=== PATIENT | female | born 1995 | race Caucasian/White ===

== ENCOUNTER 2024-07-03 08:22 | Emergency (ER) | payer BC, SELFPAY ==
[2024-07-03 08:34] VITALS: BP 170/93; PULSE 100; RESP 18; TEMP 36.8; O2SAT 97; BMI 44.8
--- NOTE | 2024-07-03 08:37 | ED_ITS ---
HPI - General Adult 2 General: Chief complaint: Nausea/Vomiting/Diarrhea Stated complaint: nauia / headaches Time Seen by Provider: 07/03/24 08:27 History of Present Illness: 28-year-old female [facility] with complaint of occipital migraine. She states she gets these often with weather changes for having some weather change now. Does not even usually once a month. In the past she did use sumatriptan orally occasion they would most often be effective but sometimes states the headaches get severe enough that it did not work. She has had autophobia photophobia and nausea with this headache. This been going on for the last couple of days she has not really taken anything for it at home. I had asked her if she had any cough or cold symptoms that she had told me now she did tell the nurse and her note recorded that she had increased cough and congestion recently she denies any fever or head trauma she does not believe that she is . Associated symptoms: Reports headache(s); Deny chest pain, dyspnea or rash Related Data Previous Rx's Medication Instructions Recorded cefdinir 300 mg capsule 300 mg PO BID 7 days #14 caps 07/03/24 promethazine 25 mg tablet 25 mg PO Q6H PRN nausea and 07/03/24 vomiting #20 tabs Allergies Allergy/AdvReac Type Severity Reaction Status Date / Time No Known Allergies Allergy Verified 07/03/24 08:33 Review of Systems 2 Const: Denies: fever(s) or chills Card: Denies: chest pain Resp: Denies: dyspnea GI: Denies: abdominal pain : Denies: dysuria, urinary frequency or urinary urgency Musc: Denies: neck pain or back pain Skin/Breast: Denies: rash Neuro: Reports: headache(s) Physical Exam 2 Const: COMMON NORMALS: no acute distress GENERAL APPEARANCE: cooperative ORIENTATION/CONSCIOUSNESS: Yes awake, Yes oriented to person, Yes oriented to place and Yes oriented to time HENMT: COMMON NORMALS: normocephalic, atraumatic and hearing grossly normal bilaterally HEAD & SCALP: normocephalic and atraumatic Resp: COMMON NORMALS: normal respiratory effort, No retractions, No use of accessory muscles and clear to auscultation bilaterally AUSCULTATION: clear to auscultation bilaterally Cardio: COMMON NORMALS: regular rate, regular rhythm and No murmurs present (Cardio) RATE: regular rate RHYTHM: regular rhythm GI: COMMON NORMALS: Soft to palpation and No hepatosplenomegaly present A USCULTATION: Yes normoactive bowel sounds PALPATION: Yes Soft to palpation, No Tenderness to palpation present (GI), No Guarding due to palpation present (GI) and Yes No hepatosplenomegaly present Extremity: COMMON NORMALS: normal to inspection, capillary refill normal, no clubbing, cyanosis or edema, no calf tenderness and no pedal edema Neuro: SENSORIUM/ORIENTATION: Yes oriented to person, Yes oriented to place and Yes oriented to time Skin: COMMON NORMALS: no rashes or lesions noted GENERAL SKIN EXAM: no rashes or lesions noted Course 2 Vital Signs: Vital signs: Vital Signs Temperature 98.3 F 07/03/24 08:34 Pulse Rate 98 07/03/24 11:33 Respiratory Rate 18 07/03/24 08:39 Blood Pressure 177/85 07/03/24 11:33 Pulse Oximetry 97 07/03/24 11:33 MDM - General Adult Medical Decision Making Patient initially presents complaints of nausea vomiting and a headache. Initial lab work 200 qualitative beta-hCG came back positive. We had started valproic acid for headache this was stopped immediately. She received only a small portion of the dose. Serum quantitative beta-hCG was 11,000. When I went to discuss the lab findings with the patient there was a family member presently has a family member to step out. Informed patient to that she was we will be getting an ultrasound she asked that we not share this information with the family member that was with her. Advised the nursing staff and the chief technologist of her wishes. Ultrasound shows approximately 20 weeks 1 day gestation amniotic fluid and cardiac activity was normal. Reviewed this with the patient the ultrasound gives her an EDC of 11/19/2024 however discussed with the patient that in the case of late presenting ultrasounds of the dating is rather loose. She is uncertain of her LMP as her periods of always been very irregular. I reviewed the findings with the patient we did not however put her on the discharge paperwork that was given her because of her desire not to have the family member aware of the diagnosis. It was added after she was given her discharge paperwork and left the department. She was given a handwritten prescription for vitamins along with promethazine to use as needed encouraged her to follow-up with her primary care doctor to establish with an OB as soon as she possibly can. Incidental finding of a cystitis for which we will call in oral antibiotics. Lab Data 07/03/24 08:46 07/03/24 08:46 Radiology Impressions Obstetrics Ultrasound 07/03/24 10:09 IMPRESSION: 1. Single intrauterine gestation of 20w1d with an AYAAN of 11/19/2024. 2. Normal amniotic fluid. Normal cardiac activity. Laboratory Results WBC 10.45 10^3/uL (3.29-11.43) 07/03/24 08:46 RBC 4.64 10^6/uL (3.85-5.65) 07/03/24 08:46 Hgb 12.00 g/dL (11.27-16.99) 07/03/24 08:46 Hct 37.6 % (36-47) 07/03/24 08:46 MCV 81.0 fl (85-98) L 07/03/24 08:46 MCH 25.9 pg (27-33) L 07/03/24 08:46 MCHC 31.9 g/dL (30-55) 07/03/24 08:46 RDW 13.8 % (12.1-15.1) 07/03/24 08:46 Plt Count 478 10^3/cmm (157-399) H 07/03/24 08:46 MPV 9.3 fL (7.4-10.4) 07/03/24 08:46 Neut % (Auto) 69.2 % 07/03/24 08:46 Lymph % (Auto) 23.6 % 07/03/24 08:46 [place] % (Auto) 4.8 % 07/03/24 08:46 Eos % (Auto) 1.7 % 07/03/24 08:46 Baso % (Auto) 0.4 % 07/03/24 08:46 Neut # (Auto) 7.23 10^3/uL (1.8-7.7) 07/03/24 08:46 Lymph # (Auto) 2.5 10^3/uL (0.8-4.8) 07/03/24 08:46 [place] # (Auto) 0.5 10^3/uL (0.2-0.9) 07/03/24 08:46 Eos # (Auto) 0.2 10^3/uL (0.0-0.8) 07/03/24 08:46 Baso # (Auto) 0.0 10^3/uL (0.0-0.1) 07/03/24 08:46 Nucleated RBC % (auto) 0 % 07/03/24 08:46 Nucleated RBCs # 0.0 /100WBC 07/03/24 08:46 Sodium 138 mmol/L (136-145) 07/03/24 08:46 Potassium 3.8 mmol/L (3.5-5.1) 07/03/24 08:46 Chloride 101 mmol/L (98-107) 07/03/24 08:46 Carbon Dioxide 21 mmol/L (22-29) L 07/03/24 08:46 Anion Gap 19.8 (5-19) H 07/03/24 08:46 BUN 9 mg/dL (6-20) 07/03/24 08:46 Creatinine 0.5 mg/dL (0.5-0.9) 07/03/24 08:46 GFR Calculation 149.1 mL/min (90-130) H 07/03/24 08:46 Glucose 79 mg/dL (65-115) 07/03/24 08:46 Calculated Osmolality 284 mOsm/kg (285-295) L 07/03/24 08:46 Calcium 9.4 mg/dL (8.5-10.5) 07/03/24 08:46 Total Bilirubin 0.2 mg/dL (0.15-1.2) 07/03/24 08:46 AST 39 U/L (0-32) H 07/03/24 08:46 ALT 19 U/L (0-33) 07/03/24 08:46 Alkaline Phosphatase 95 U/L (35-105) 07/03/24 08:46 Total Protein 7.3 g/dL (6.6-8.7) 07/03/24 08:46 Albumin 3.9 g/dL (3.5-5.2) 07/03/24 08:46 Globulin 3.4 g/dL (1.3-4.6) 07/03/24 08:46 HCG, Qual Positive (Negative) H 07/03/24 08:46 Ser , Semi-Qnt 70859.00 mIU/mL 07/03/24 08:46 Urine Color [place] (Yellow) A 07/03/24 08:54 Urine Appearance Turbid (CLEAR) A 07/03/24 08:54 Urine pH 5.0 (5-7) 07/03/24 08:54 Ur Specific [place] 1.031 (1.005-1.030) H 07/03/24 08:54 Urine Protein 1+ (Negative) A 07/03/24 08:54 Urine Glucose (UA) Negative (Normal) 07/03/24 08:54 Urine Ketones Trace (Negative) 07/03/24 08:54 Urine Blood Negative (Negative) 07/03/24 08:54 Urine Nitrate Positive (Negative) A 07/03/24 08:54 Urine Bilirubin 1+ (Negative) H 07/03/24 08:54 Urine Urobilinogen 1.0 mg/dL (Negative) 07/03/24 08:54 Ur Leukocyte Esterase 1+ (Negative) A 07/03/24 08:54 Urine RBC 11-20 /hpf (0-2) H 07/03/24 08:54 Urine WBC 21-50 /hpf (0-5) H 07/03/24 08:54 Ur Squamous Epith Cells 21-50 /hpf (0-5) 07/03/24 08:54 Amorphous Sediment 1+ /hpf 07/03/24 08:54 Urine Bacteria 4+ /hpf (NONE) H 07/03/24 08:54 Hyaline Casts 5.36 /lpf 07/03/24 08:54 Urine Mucus 1+ /hpf 07/03/24 08:54 All radiology interpretation(s) finalized by discharge Discharge Plan Discharge Patient Disposition: Home Clinical Impression: Headache, Nausea & vomiting, Cystitis, 20 weeks gestation of Condition: Stable Prescriptions: New promethazine 25 mg tablet 25 mg PO Q6H PRN (Reason: nausea and vomiting) Qty: 20 0RF cefdinir 300 mg capsule 300 mg PO BID 7 Days Qty: 14 0RF Discharge Orders: Discharge ED (Routine); Ordered 07/03/24 Ordered By: Perry Schwartz Discharge Diet: Usual diet Discharge Activity: Resume usual activity Patient Instructions: Opioid Safety, Pain Management Activity Restrictions/Additional Instructions: Thank you for choosing [facility] for your healthcare needs today. It is very important that you follow up as instructed or that you return to the Emergency Department should you have concerns or if your condition changes or worsens in any way. You were seen in the emergency room with complaint of nausea and headaches. Your symptoms responded well to the medications given. You are given promethazine to use as needed for nausea vomiting and headaches. You can also use Tylenol. Very important that you follow-up with your primary care doctor as soon as you are able. 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
[2024-07-03 08:39] VITALS: BP 170/93; PULSE 100; RESP 18; O2SAT 97
[2024-07-03] MEDS: prochlorperazine 10 mg/2 mL Inj IVP (08:50)
[2024-07-03 08:51] LABS: Basophils % 0.4 %; Eosinophils # 0.2 10^3/uL (0.0-0.8); Eosinophils % 1.7 %; Hematocrit 37.6 % (36-47); Lymphocytes # 2.5 10^3/uL (0.8-4.8); Lymphocytes % 23.6 %; Mean Corpuscular HGB Conc 31.9 g/dL (30-55); Mean Corpuscular Hemoglobin 25.9 pg (27-33); Mean Platelet Volume 9.3 fL (7.4-10.4); Monocytes # 0.5 10^3/uL (0.2-0.9); Monocytes % 4.8 %; Neutrophils # 7.23 10^3/uL (1.8-7.7); Neutrophils % 69.2 %; Nucleated Red Blood Cells % 0 %; Platelet Count 478 10^3/cmm (157-399); Red Blood Count 4.64 10^6/uL (3.85-5.65); Red Cell Distribution Width 13.8 % (12.1-15.1); White Blood Count 10.45 10^3/uL (3.29-11.43)
[2024-07-03 08:59] LABS: HCG, Serum Qual Positive (Negative)
[2024-07-03] MEDS: valproic acid inj 500 MG in sodium chloride 0.9% 50 ML 55 MG IV (09:08)
[2024-07-03 09:12] LABS: Alanine Aminotransferase 19 U/L (0-33); Albumin Level 3.9 g/dL (3.5-5.2); Alkaline Phosphatase 95 U/L (35-105); Anion Gap 19.8 (5-19); Aspartate Amino Transferase 39 U/L (0-32); Blood Urea Nitrogen 9 mg/dL (6-20); Calcium 9.4 mg/dL (8.5-10.5); Carbon Dioxide 21 mmol/L (22-29); Chloride 101 mmol/L (98-107); Creatinine Clr Calc Pharmacy 239.1567; Globulin 3.4 g/dL (1.3-4.6); Glomerular Filtration Rate 149.1 mL/min (90-130); Glucose 79 mg/dL (65-115); Osmolality Calculated 284 mOsm/kg (285-295); Potassium 3.8 mmol/L (3.5-5.1); Sodium 138 mmol/L (136-145); Total Bilirubin 0.2 mg/dL (0.15-1.2); Total Protein 7.3 g/dL (6.6-8.7)
[2024-07-03 09:20] LABS: Bilirubin Urine 1+ (Negative); Blood Urine Negative (Negative); Glucose Urine UA Negative (Normal); Ketones Urine Trace (Negative); Leukocyte Esterase Urine 1+ (Negative); Nitrate Urine Positive (Negative); Protein Urine 1+ (Negative); Urine Appearance Turbid (CLEAR)
[2024-07-03 09:25] LABS: Add Urine Microscopic? YES; Bacteria Urine 4+ /hpf; Hyaline Casts Urine 5.36 /lpf; Squamous Epithelial Cell Urine 21-50 /hpf (0-5); WBC Urine 21-50 /hpf (0-5)
[2024-07-03 09:33] LABS: Mucus Urine 1+ /hpf; Specific Gravity, Urine 1.031 (1.005-1.030); UA Slide Review UA Slide Review Perf; Urine Color Orange (Yellow)
[2024-07-03 09:34] LABS: Amorphous Sediment Urine 1+ /hpf
--- NOTE | 2024-07-03 10:09 | US_ITS ---
WS: [id number] LIMITED OBSTETRICAL ULTRASOUND HISTORY: newly dx COMPARISON: None available. Presentation: Indeterminate, head is not just above the cervix. Cervix: Closed and normal length. Placenta: Posterior, no previa or abruption. Grade: 1 HEART: FHR of 148 BPM. measurements: BPD = 4.6 cm = 19w6d; HC = 17.5 cm = 20w0d; AC = 15.1 cm = 20w2d; FL = 3.3 cm = 20w3d; Normal amniotic fluid. EFW: 345.0 g AGA by ultrasound: 20w1d AYAAN by ultrasound: 11/19/2024 US/US OB limited [id number] IMPRESSION: 1. Single intrauterine gestation of 20w1d with an AYAAN of 11/19/2024. 2. Normal amniotic fluid. Normal cardiac activity.
[2024-07-03] MEDS: cefTRIAXone 1,000 mg SDV 1000 MG IVP (10:17)
[2024-07-03 10:20] VITALS: BP 151/94; PULSE 113; O2SAT 96
[2024-07-03 11:01] VITALS: BP 163/86; PULSE 98; O2SAT 97
[2024-07-03 11:33] VITALS: BP 177/85; PULSE 98; O2SAT 97
--- NOTE | 2024-07-03 11:36 | PC.NURSE ---
provider added dx, after pt had d/c printed bc she didnt want her father knowing she was . provider wrote a prescription for vitamins and it was paperclipped inside paperwork with work notes. pt was instructed by provider to follow up with PCP and establish care with OB.
== END 2024-07-03 11:33 | disposition home or self-care (01) ==
PROVIDERS: Emergency Provider Family Medicine
DX: R51.9 Headache, unspecified (principal); R11.2 Nausea with vomiting, unspecified; N30.90 Cystitis, unspecified without hematuria; Z3A.20 20 weeks gestation of pregnancy
CPT/HCPCS: 76815; 80053; 81001; 84702; 84703; 85025; 96374; 96375; 99285; J0696; J0780; J3490

== ENCOUNTER 2024-10-30 15:22 | Outpatient (CLI) | payer BC, SELFPAY ==
[2024-10-30 15:22] VITALS: BP 137/64; PULSE 114; O2SAT 98
[2024-10-30 15:52] VITALS: BP 129/62; PULSE 107
[2024-10-30 16:01] VITALS: BP 124/60; PULSE 113
[2024-10-30 16:18] VITALS: BP 137/64; PULSE 114
== END 2024-10-30 16:35 | disposition home or self-care (01) ==
LOC: OPOB 15:23 → OBGYN 15:46
PROVIDERS: PCP Family Medicine; Visit Provider Family Medicine
DX: O13.9 Gestational [pregnancy-induced] hypertension without significant proteinuria, unspecified trimester (principal); Z3A.00 Weeks of gestation of pregnancy not specified
CPT/HCPCS: 59025; 99211

== ENCOUNTER 2024-11-24 04:56 | Inpatient (IN) | payer BC, SELFPAY ==
--- NOTE | 2024-11-05 12:15 | ANES.PREANE2 ---
Pre-Anesthetic Assessment Height/Weight: Height 1.7 m Operation Date: 11/24/24 07:20 Proposed Procedures p Section 39788,(Not Applicable) - Michael Rutledge MD Familial anesthetic complications: None Social No alcohol and No tobacco Exam alert, oriented x 3, clear to auscultation bilaterally and regular rate & rhythm Airway Dentition: full Anesthetic Plan ASA status: 2 Anesthesia: Regional (specify below) Risk of > 500 ml blood loss (7ml/kg in children): Yes, adequate IV access and fluids planned Medications/Allergies Home Medications ?Medication ?Instructions ?Recorded ?Confirmed ?Last Taken ?Type promethazine 25 mg tablet 25 mg PO Q6H PRN nausea and 07/03/24 Unknown Rx vomiting #20 tabs Allergies Allergy/AdvReac Type Severity Reaction Status Date / Time No Known Allergies Allergy Verified 07/03/24 08:33
[2024-11-24] VITALS (44 sets, daily range): BP systolic 88–196; BP diastolic 51–108; PULSE 61–96; RESP 15–16; TEMP 36.3–36.6; O2SAT 98–100; BMI 45.8
--- OUTSIDE RECORDS SUMMARY | 2024-11-24 04:58 | XMS_ITS | Clinical Summary ---
Author Organization [facility] Address [address] [place] [address] Care Team Providers Care Visualizer Name Role Phone Mel Adenike Suggs Primary Care Provider [phone] Allergies No known active allergies Medications SUMAtriptan (IMITREX) 50 mg tabletIndicatio ns:Intractable migraine without aura and without status migrainosus Take 1 Tablet (50 mg) by mouth every 2 hours as needed for Migraine. may repeat in 2 hours; max dose 200mg in 24 hours 9 Tablet 6 04/21/20 20 Active buPROPion HCL (WELLBUTRIN SR) 150 mg Sustained Release 12 hour tabletIndicatio ns:Mood swings,Obesity (BMI 35.0-39.9 without comorbidity),Mo derate single current episode of major depressive disorder (CMS/HCC) Take 1 tablet by mouth twice daily 180 Tablet 1 06/13/20 20 Active triamcinolone acetonide (KENALOG) 0.5 % CreamIndication s:Atopic dermatitis, unspecified type Apply to affected area 2 times daily. 30 Gram 2 06/13/20 20 Active Ethinyl Estradiol-Norel gestrom 150-35 mcg/24 hr Patch Weekly PATCHIndication s:Contraceptive patch status Apply 1 Patch to skin as directed see administration instructions. 3 Patch 12 06/19/20 20 Active Active Problems Problem Noted Date Diagnosed Date Intractable migraine without aura and without status migrainosus 08/05/2017 Mixed hyperlipidemia 06/02/2017 Family History Medical History Relation Name Comments Heart Disease Maternal Grandfather Diabetes Maternal Grandmother Heart Disease Maternal Grandmother Thyroid Disease Mother No Known Problems Sister Relation Name Status Comments Maternal Grandfather Alive Maternal Grandmother Alive Mother Alive Sister Alive Social History Tobacco Use Types Packs/Day Years Used Date Smoking Tobacco: Never Smokeless Tobacco: Never Tobacco Cessation:Counseling Given: Yes Alcohol Use Standard Drinks/Week Comments No 0 (1 standard drink = 0.6 oz pur e alcohol) Comments No Sex and Gender Information Value Date Recorded Sex Assigned at Not on file Legal Sex Female 2:26 PM CDT Gender Identity Not on file Sexual Orientation Not on file Last Filed Vital Signs Vital Sign Reading Time Taken Comments Blood Pressure 116/64 06/13/2020 4:01 PM ASSISTANT MANAGER PT Pulse 91 06/13/2020 4:01 PM ASSISTANT MANAGER PT Temperature 36.9 C (98.5 F) 06/13/2020 4:01 PM ASSISTANT MANAGER PT Respiratory Rate 18 09/09/2017 4:32 PM CDT Oxygen Saturation 98% 06/13/2020 4:01 PM ASSISTANT MANAGER PT Inhaled Oxygen Concentration - - Weight 102.5 kg (226 lb) 06/13/2020 4:01 PM ASSISTANT MANAGER PT Height 170.2 cm (5' 7 ) 06/13/2020 4:01 PM ASSISTANT MANAGER PT Body Mass Index 35.4 06/13/2020 4:01 PM ASSISTANT MANAGER PT Plan of Treatment Health Maintenance Due Date Last Done Comments HPV VACCINES (1 - 3-dose series) 2012 DTAP/TDAP/TD VACCINES (1 - Tdap) 2016 HEPATITIS B VACCINES (1 of 3 - 19+ 3-dose series) 2016 CERVICAL CANCER SCREENING 06/09/2022 PAP SMEAR 06/09/2022 06/09/2019, 06/09/2019 INFLUENZA VACCINE (#1) 2024 HPV/Cotest (21-29) 06/09/2024 06/09/2019 Preventative Visit- Commercial 06/24/2024 1 07/16/2021, 02/19/2022, 06/13/2020, Additional history exists HPV/Cotest (30-65) 12/27/2027 06/09/2019 Procedures Procedure Name Priority Date/Time Associated Diagnosis Comments CERV/VAG CYTO SCREEN PAP W/HPV Routine 06/09/2019 11:24 AM ASSISTANT MANAGER PT Well woman exam with routine gynecological exam from Last 3 Months or Most Recently Relevant to Health Maintenance Results * CERV/VAG CYTO SCREEN PAP W/HPV (06/09/2019 11:24 AM ASSISTANT MANAGER PT) PAP INTERP See Separate Results 06/15/2019 11:33 AM ASSISTANT MANAGER PT [facility] Genital SWAB OF ENDOCERVIX / Unknown Collection / Unknown 06/09/2019 11:24 AM ASSISTANT MANAGER PT 06/10/2019 7:00 AM ASSISTANT MANAGER PT us Vanessa Timmons HOME THERAPY CLINICIAN PATHOLOGY/CYTOLOGY ORDERABLES Final Result [facility] [employer] [facility] CLIA# [id number] [address] [place], [place] [id number] from Last 3 Months or Most Recently Relevant to Health Maintenance Insurance [employer]US Care Teams Visualizer Relationship Specialty Start Date End Date Adenike Leal DO [address] [place] [address] PCP - General Family Practice 12/07/19
--- OUTSIDE RECORDS SUMMARY | 2024-11-24 04:58 | XMS_ITS | Encounter Summary ---
Author Organization [facility] Address [address] [place] [address] Care Team Providers Care Metal Roofer Name Role Phone Adenike Leal Primary Care Provider [phone] Encounter Details Date Type Department Care Team (Late st Contact Info) Description 12/07/2019 Ancillary Orders [facility] Medicine [place] [address] [place] [address] Sheree Tavarez, [facility] [address] [facility] [address] [place] [phone] Fall, initial encounter; Acute midline thoracic back pain Social History Tobacco Use Types Packs/Day Years Used Date Smoking Tobacco: Never Smokeless Tobacco: Never Alcohol Use Standard Drinks/Week Comments No 0 (1 standard drink = 0.6 oz pur e alcohol) Comments No Sex and Gender Information Value Date Recorded Sex Assigned at Not on file Legal Sex Female 2:26 PM CDT Gender Identity Not on file Sexual Orientation Not on file COVID-19 Exposure Response Date Recorded In the last month, have you been in contact with someone who was confirmed or suspected to have Coronavirus / COVID-19? No / Unsure 12/07/2019 11:00 AM CDT documented as of this encounter Plan of Treatment Not on file documented as of this encounter Results * XR THORACIC SPINE 3 VW (12/07/2019 2:38 PM CDT) Anatomical Region Laterality Modality Spine Computed Radiogr aphy 12/07/2019 2:38 PM CDT Impressions 12/07/2019 9:38 PM CDT IMPRESSION: No acute osseous abnormality. Narrative 12/07/2019 9:38 PM CDT Exam: XR THORACIC SPINE 3 VW Date/Time of Exam: 12/07/2019 2:38 PM Reason For Exam: See Diagnosis. Diagnosis: Fall, initial encounter; Acute midline thoracic back pain. Comparison: None. Findings: The vertebral body alignment appears anatomic. There is no definitive evidence of an acute fracture or compression deformity. The soft tissues appear grossly unremarkable. Procedure Note José Meier, DO - 12/07/2019 Exam: XR THORACIC SPINE 3 VW Date/Time of Exam: 12/07/2019 2:38 PM Reason For Exam: See Diagnosis. Diagnosis: Fall, initial encounter; Acute midline thoracic back pain. Comparison: None. Findings: The vertebral body alignment appears anatomic. There is no definitive evidence of an acute fracture or compression deformity. The soft tissues appear grossly unremarkable. IMPRESSION: No acute osseous abnormality. Sheree Tavarez BOATBUILDER APPRENTICE WOOD DIAGNOSTIC IMAGING ORDER LUIGI Final Result documented in this encounter Visit Diagnoses Diagnosis Fall, initial encounter Acute midline thoracic back pain Fall, initial encounter Acute midline thoracic back pain documented in this encounter Care Teams Metal Roofer Relationship Specialty Start Date End Date Adenike Leal DO [address] [place] [address] PCP - General Family Practice 12/07/19 documented as of this encounter
--- OUTSIDE RECORDS SUMMARY | 2024-11-24 04:58 | XMS_ITS | Clinical Summary ---
Author Organization [facility] Address [address] [facility] Attn: Epic Prelude ADT EZEQUIEL NUNES [address] Care Team Providers Care Slate Picker Name Role Phone Adenike Leal Primary Care Provider [phone] Allergies No known active allergies Medications simvastatin (ZOCOR) 10 mg tabletIndications: Hyperlipidemia, unspecified hyperlipidemia type Take 1 Tablet (10 mg) by mouth daily at bedtime. 90 Tablet 3 05/16/20 22 Active triamcinolone acetonide (KENALOG) 0.5 % CreamIndications:A topic dermatitis, unspecified type Apply to affected area 2 times daily. 30 Gram 1 10/12/19 23 Active buPROPion HCL (WELLBUTRIN SR) 150 mg Sustained Release 12 hour tabletIndications: Mood swings,Obesity (BMI 35.0-39.9 without comorbidity),Moder ate single current episode of major depressive disorder (CMS/HCC) Take 1 Tablet (150 mg) by mouth 2 times daily. 60 Tablet 5 10/12/19 23 Active SUMAtriptan (Imitrex) 100 mg tabletIndications: Intractable migraine without aura and without status migrainosus Take 1 Tablet (100 mg) by mouth see administration instructions. may repeat in 2 hours; max dose 200mg in 24 hours 12 Tablet 3 10/12/19 23 Active Ethinyl Estradiol-Norelges trom (Zafemy) 150-35 mcg/24 hr Patch Weekly PATCHIndications:C ontraceptive patch status APPLY 1 PATCH TOPICALLY TO CLEAN DRY SKIN DIRECTED 3 Patch 11 04/17/20 24 Active Active Problems Problem Noted Date Diagnosed Date Intractable migraine without aura and without status migrainosus 08/05/2017 Mixed hyperlipidemia 06/02/2017 Encounters Date Type Department Care Team Description 09/22/2024 External Device Data [facility] ABSTRACTION Provider, Abstract 08/29/2024 External Device Data [facility] ABSTRACTION Provider, Abstract 08/28/2024 External Device Data [facility] ABSTRACTION Provider, Abstract 08/25/2024 External Device Data [facility] ABSTRACTION Provider, Abstract from Last 3 Months Family History Medical History Relation Name Comments Heart Disease Maternal Grandfather Diabetes Maternal Grandmother Heart Disease Maternal Grandmother Thyroid Disease Mother No Known Problems Sister Relation Name Status Comments Maternal Grandfather Alive Maternal Grandmother Alive Mother Alive Sister Alive Social History Tobacco Use Types Packs/Day Years Used Date Smoking Tobacco: Never Passive Smoke Exposure: Never Smokeless Tobacco: Never Tobacco Cessation:Counseling Given: No Alcohol Use Standard Drinks/Week Comments No 0 (1 standard drink = 0.6 oz pur e alcohol) Comments No Sex and Gender Information Value Date Recorded Sex Assigned at Not on file 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 Gender Identity Not on file Sexual Orientation Not on file Last Filed Vital Signs Vital Sign Reading Time Taken Comments Blood Pressure 126/62 04/17/2024 2:59 PM CDT Pulse 100 04/17/2024 2:59 PM CDT Temperature 37 C (98.6 F) 04/17/2024 2:59 PM CDT Respiratory Rate 18 04/17/2024 2:59 PM CDT Oxygen Saturation 97% 04/17/2024 2:59 PM CDT Inhaled Oxygen Concentration - - Weight 130.1 kg (286 lb 12.8 oz) 04/17/2024 2:59 PM CDT Height 170.2 cm (5' 7 ) 04/17/2024 2:59 PM CDT Body Mass Index 44.92 04/17/2024 2:59 PM CDT Plan of Treatment Health Maintenance Due Date Last Done Comments HPV VACCINES (1 - 3-dose series) 2012 DTAP/TDAP/TD VACCINES (1 - Tdap) 2016 HEPATITIS B VACCINES (1 of 3 - 19+ 3-dose series) 2016 HPV/Cotest (21-29) 06/09/2024 06/09/2019, 06/09/2019 Preventative Visit- Commercial 06/24/2024 1 07/16/2021, 02/19/2022, 06/13/2020, Additional history exists CERVICAL CANCER SCREENING 05/16/2025 PAP SMEAR 05/16/2025 05/16/2022, 05/24, 06/09/2019, Additional history exists HPV/Cotest (30-65) 12/27/2027 06/09/2019, 06/09/2019 INFLUENZA VACCINE Completed 04/17/2024 Procedures Procedure Name Priority Date/Time Associated Diagnosis Comments CERV/VAG CYTO AGE BASED SCREEN PAP Routine 05/16/2022 2:19 PM MARINE SPECIALIST Well woman exam with routine gynecological exam CERV/VAG CYTO SCREEN PAP W/HPV Routine 06/09/2019 11:24 AM MARINE SPECIALIST from Last 3 Months or Most Recently Relevant to Health Maintenance Results * CERV/VAG CYTO AGE BASED SCREEN PAP (05/16/2022 2:19 PM MARINE SPECIALIST) COMMENT (PAP): [facility] [place] Comment: This order for age-based cervical cancer and STI screening follows ACOG guidelines(PB 168, 140, FOG538). See individual assays for performing site location. CLINICAL INFORMATION [facility] [place] Comment:SCREENING LAST MENSTRUAL PERIOD [facility] [place] Comment:05/03/2022 PREV PAP: [facility] [place] Comment:06/09/2019 NEG PREV BX: [facility] [place] Comment:NONE GIVEN SOURCE [facility] [place] Comment:Endocervix ADEQUACY: [facility] [place] Comment: Satisfactory for evaluation. Endocervical/transformation zone component present. PAP INTERP [facility] [place] Comment:Negative for intraep ithelial lesion or malignancy. COMMENT (PAP TEST) [facility] [place] Comment: This Pap test has been evaluated with computer assisted technology. CHOPPING MACHINE OPERATOR: Donna Regalado Comment: MMW, CT(ASCP) CT screening location: [place] [address] [place] [address] Subhash Regalado Comment: EXPLANATORY NOTE: The Pap is a screening test for cervical cancer. It is not a diagnostic test and is subject to false negative and false positive results. It is most reliable when a satisfactory sample, regularly obtained, is submitted with relevant clinical findings and history, and when the Pap result is evaluated along with historic and current clinical information. C TRAC RNA NOT DETECTED NOT DETECTED [facility] [place] N.GONORRHOEAE RNA, TMA NOT DETECTED NOT DETECTED [facility] [place] COMMENT INFECTIOUS DISEASE [facility] [place] Comment: The analytical performance characteristics of this assay, when used to test SurePath(TM) specimens have been determined by [facility]. The modifications have not been cleared or approved by the FDA. This assay has been validated pursuant to the CLIA regulations and is used for clinical purposes. For additional information, please refer to https://education.Teez.mobi/faq/THS380 (This link is being provided for information/ educational purposes only.) Test Performed at: [facility] [address] [address] Jerald Dunn D.O., MPH Genital SWAB OF ENDOCERVIX / Unknown 05/16/2022 2:19 PM MARINE SPECIALIST 05/17/2022 7:12 AM MARINE SPECIALIST us Vanessa Timmons [facility] PATHOLOGY/CYTOLOGY ORDERABLES Final Result [facility] [phone] [facility] [address] [place] [address] * CERV/VAG CYTO SCREEN PAP W/HPV (06/09/2019 11:24 AM MARINE SPECIALIST) PAP INTERP See Separate Results 06/15/2019 11:33 AM MARINE SPECIALIST [facility] Genital SWAB OF ENDOCERVIX / Unknown Collection / Unknown 06/09/2019 11:24 AM MARINE SPECIALIST 06/10/2019 7:00 AM MARINE SPECIALIST us Vanessa Timmons [facility] PATHOLOGY/CYTOLOGY ORDERABLES Final Result [facility] CLIA# [id number] [address] [place] [address] [facility] CLIA# [id number] [address] [place] [address] from Last 3 Months or Most Recently Relevant to Health Maintenance Insurance , [address] [place] [address] [employer] CHOICE POS II Care Teams Slate Picker Relationship Specialty Start Date End Date Adenike Leal DO [address] [place] [id number] PCP - General Family Practice 12/07/19
[2024-11-24] MEDS: lactated ringers 1,000 ML 999 ML IV ×2 (05:35→06:37)
[2024-11-24 05:36] LABS: Basophils % 0.2 %; Eosinophils # 0.1 10^3/uL (0.0-0.8); Eosinophils % 0.9 %; Hematocrit 34.2 % (36-47); Lymphocytes # 2.5 10^3/uL (0.8-4.8); Lymphocytes % 25.9 %; Mean Corpuscular HGB Conc 30.7 g/dL (30-55); Mean Corpuscular Hemoglobin 24.2 pg (27-33); Mean Platelet Volume 10.2 fL (7.4-10.4); Monocytes # 0.5 10^3/uL (0.2-0.9); Neutrophils # 6.52 10^3/uL (1.8-7.7); Neutrophils % 67.6 %; Nucleated Red Blood Cells % 0 %; Platelet Count 373 10^3/cmm (157-399); Red Blood Count 4.33 10^6/uL (3.85-5.65); Red Cell Distribution Width 15.5 % (12.1-15.1); White Blood Count 9.65 10^3/uL (3.29-11.43)
--- NOTE | 2024-11-24 06:18 | ANES.PREANE2 ---
Pre-Anesthetic Assessment Height/Weight: Height 5 ft 7 in Weight 293 lb Pulse BP O2 Del Method 90 131/75 Room Air 11/24/24 06:01 11/24/24 06:01 11/24/24 05:14 Preop Diagnosis: Planned Operation Date: 11/24/24 07:20 Proposed Procedures p Section 94366,(Not Applicable) - Michael Rutledge MD Was Beta Nalini taken within 24 hours: N/A Was Clonidine taken within 24 hours: N/A Last intake: Intake Last Liquid Date 11/23/24 Last Liquid Time 20:00 Last Solid Date 11/23/24 Last Solid Time 18:00 Social No alcohol and No tobacco Exam alert, oriented x 3, clear to auscultation bilaterally and regular rate & rhythm Airway Submandibular: within normal limits Cervical ROM: within normal limits Mallampati: Class III Dentition: full Anesthetic Plan ASA status: 3 Anesthesia: Regional (specify below) Other: G1, P0, 40 weeks and 4 days here for planned for breech presentation Patient denies any issues during with herself or baby N.p.o. since yesterday evening Denies any pulmonary or cardiac issues BMI 45 Does not take any medications other than a vitamin Labs reviewed and acceptable for procedure today METs greater than 4 Plan for routine with spinal Medications/Allergies Home Medications ?Medication ?Instructions ?Recorded ?Confirmed ?Last Taken ?Type wcxmtuuk-rtf-[id number]-FA 1 mg 1 tab PO DAILY 11/24/24 11/24/24 11/23/24 18:00 History tablet Allergies Allergy/AdvReac Type Severity Reaction Status Date / Time No Known Allergies Allergy Verified 07/03/24 08:33 [facility] Anesthesia Female Reproductive History : 1 Data Anesthesia 11/24/24 05:20 Short CBC 11/24/24 Range/Units 05:20 WBC 9.65 (3.29-11.43) 10^3/uL Hgb 10.50 L (11.27-16.99) g/dL Hct 34.2 L (36-47) % MCV 79.0 L (85-98) fl Plt Count 373 (157-399) 10^3/cmm Neut % (Auto) 67.6 % Neut # (Auto) 6.52 (1.8-7.7) 10^3/uL
[2024-11-24] MEDS: famotidine 20 mg/2 mL INJ IVP (06:33)
[2024-11-24] MEDS: metoclopramide 5 mg/mL SDV 2 mL 10 MG IVP (06:33)
[2024-11-24] MEDS: BUPivacaine 0.5% INJ 30 mL INJECTION (06:34)
[2024-11-24] MEDS: ceFAZolin 3,000 MG in sodium chloride 0.9% (plus) 100 ML 200 MG IV (06:34)
--- NOTE | 2024-11-24 06:44 | P.HP_ITS ---
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 She presents to the hospital today for a scheduled section due to breech presentation of her . The baby was noted to be in a breech presentation since its ultrasound performed at 32 weeks weeks. The patient had late care. We began care for the patient at around 28 weeks estimated gestational age. Otherwise her has been relatively unremarkable. Her blood type is AB+. Her antibody screen is negative. She passed her glucose screen. She is GBS negative. She is rubella nonimmune. Her infectious disease profile is within normal limits. She has no other significant medical problems Present Details : 1 Para: 0 Labs Rubella: Immune RPR: Negative GBS: Negative Review of Systems 2 General: Reports: 10 or more systems reviewed and unremarkable except in HPI and below Const: Reports: fatigue; Denies: fever(s) Eyes: Denies: change in vision Card: Denies: chest pain Musc: Reports: back pain Uziel/Lymph: Denies: easy bruising Medications/Allergies Home Medications ?Medication ?Instructions ?Recorded ?Confirmed ?Last Taken ?Type gclyprog-nod-[id number]-FA 1 mg 1 tab PO DAILY 11/24/24 11/23/24 18:00 History tablet Allergies Allergy/AdvReac Type Severity Reaction Status Date / Time No Known Allergies Allergy Verified 07/03/24 08:33 Vitals/I&O/Wt Last Vital Signs Pulse 86 11/24/24 06:31 BP 130/63 11/24/24 06:31 O2 Del Method Room Air 11/24/24 05:14 11/23/24 11/23/24 11/24/24 14:59 22:59 06:59 Intake Total 1000 / 1000 Balance 1000 / 1000 Weight last 48 hrs Weight 293 lb Physical Exam 2 Const: COMMON NORMALS: patient oriented x3 and alert HENMT: COMMON NORMALS: moist oral mucous membranes HEAD & SCALP: normal to inspection Chest: COMMONS NORMALS: normal inspection of the chest Resp: COMMON NORMALS: clear to auscultation bilaterally AUSCULTATION: clear to auscultation bilaterally Cardio: COMMON NORMALS: regular rate and regular rhythm RATE: regular rate RHYTHM: regular rhythm GI: INSPECTION: Yes normal to inspection and Yes other (Gravid) Extremity: COMMON NORMALS: normal to inspection GENERAL: Yes edema (Trace) Neuro: COMMON NORMALS: patient oriented x3, moves all extremities and no sensory deficits noted SENSORIUM/ORIENTATION: Yes alert Psych: COMMON NORMALS: mental status grossly normal Skin: COMMON NORMALS: no rashes or lesions noted GENERAL SKIN EXAM: no rashes or lesions noted Data 11/24/24 05:20 Results Labs OB ([facility]): 2 Obstetrics 07/03/24 Blood Type AB Positive Today Antibody Screen Negative Today Hct, (36-47) 34.2 % L Today Hgb, (11.27-16.99) 10.50 g/dL L Today Rho(D) Type Rh positive Today Plt Count, (157-399) 373 10^3/cmm Today Ser , Semi-Qnt 01734.00 mIU/mL 07/03/24 HCG, Qual, (Negative) Positive H 07/03/24 A&P Assessment and plan (1) 40 weeks gestation of : Earlier in her we discussed the options of a an external version versus a section. After discussing the risks and benefits of each, she elected proceed with a section. We have discussed the risks of bleeding, infection, and damage intra-abdominal organs. She has no further questions and wishes to proceed. (2) Breech presentation, antepartum: PDMP PDMP Reviewed: Not Reviewed Attestations 2 Medical Necessity Statement*: I anticipate routine and post care. Coding Level of Care Code Acute Code for Chg Fwd Diagnoses 40 weeks gestation of Z3A.40 Breech presentation, antepartum O32.1XX0
--- NOTE | 2024-11-24 08:26 | PM.OP ---
Operative Report Date of procedure: November 24, 2024 Pre-op diagnosis: 1. 28-year-old 1 at 40 weeks and 3 days presenting for a section due to breech presentation Post-op diagnosis: Status post low-transverse section Procedure done: Lower transverse section Specimens removed/disposition: 1. Female with a weight of 7 pounds 15 ounces and Apgars of 8 and 8 2. Placenta with a three-vessel cord delivered intact Surgeon: Michael Rutledge MD Anesthesia: Spinal Estimated blood loss: 600 Procedure: The patient was brought back to the operating room where she was prepped and draped in usual sterile fashion. Anesthesia was found to be adequate. A lower transverse skin incision was then made with a #10 blade. I then dissected down to the underlying subcutaneous tissue until arriving at the prerectal fascia. The fascia was then nicked with the scalpel bilaterally. The fascial incisions were then carried laterally with Su scissors. Attention was then turned to the superior aspect of the incision which was grasped with kochers and tented up away from the underlying rectus abdominis muscles. The muscles were then dissected away from the fascia manually, and later with Su scissors. Attention was then turned to the inferior aspect of the incision, and the fascia was dissected away from the underlying muscle in similar fashion. The rectus abdominis muscles were then spread manually. The peritoneum was entered manually. Excellent visualization of the uterus was noted. A lower transverse uterine incision was then made with a #10 blade. Upon arriving at the intrauterine cavity, the uterine incision was then extended manually. The was noted to be in a jorgito breech position. The baby was delivered without difficulty. Shortly after delivery the mouth and nose were suctioned. There was no meconium, but the baby did have terminal meconium as she was delivered. There was no nuchal cord. The remainder of the body was then delivered and placed on the abdomen. The cord was cut and clamped. The baby was then handed to the waiting nurse. The placenta was removed intact. The uterus was externalized. The intrauterine cavity was cleansed of any remaining debris. The uterine incision was reapproximated in 2 layers. The first layer was performed with 0 Vicryl in a running locked stitch. The second layer was an imbricating stitch also using 0 Vicryl. The uterus was replaced into the abdomen. The peritoneum was then irrigated with warm saline. I reexamined the uterine incision and found it to be hemostatic. The rectus abdominis muscles were then reapproximated using 0 Vicryl in a running stitch. The fascia was then reapproximated using 0 Vicryl in running stitch. The subcutaneous tissue was reapproximated using 0 Vicryl in a running stitch. The skin was reapproximated using 4-0 Vicryl in a running subcutaneous stitch. Steris were placed. A sterile dressing was placed. All counts were correct x2. Both the mother and baby were in stable condition.
[2024-11-24] MEDS: HYDROcodone-acetaminophen 5-325 mg Tablet PO (11:24)
[2024-11-24] MEDS: dextrose 5%-lactated ringers 1,000 ML 125 ML IV ×2 (11:24→20:22)
[2024-11-24] MEDS: ketorolac 30 mg/mL INJ IVP ×2 (14:11→20:20)
[2024-11-24 20:45] LABS: Hematocrit 27.7 % (36-47); Mean Corpuscular HGB Conc 28.2 g/dL (30-55); Mean Corpuscular Hemoglobin 24.9 pg (27-33); Mean Corpuscular Volume 88.5 fl (85-98); Mean Platelet Volume 10.4 fL (7.4-10.4); Platelet Count 275 10^3/cmm (157-399); Red Blood Count 3.13 10^6/uL (3.85-5.65); Red Cell Distribution Width 15.9 % (12.1-15.1); White Blood Count 8.13 10^3/uL (3.29-11.43)
[2024-11-25] MEDS: ketorolac 30 mg/mL INJ IVP (02:24)
[2024-11-25 04:03] VITALS: BP 125/59; PULSE 82
[2024-11-25 04:07] VITALS: RESP 16; TEMP 36.7
[2024-11-25 05:01] LABS: Hematocrit 25.4 % (36-47); Mean Corpuscular HGB Conc 30.3 g/dL (30-55); Mean Corpuscular Hemoglobin 24.6 pg (27-33); Mean Corpuscular Volume 81.2 fl (85-98); Platelet Count 261 10^3/cmm (157-399); Red Blood Count 3.13 10^6/uL (3.85-5.65); Red Cell Distribution Width 15.9 % (12.1-15.1); White Blood Count 7.85 10^3/uL (3.29-11.43)
--- NOTE | 2024-11-25 06:42 | PM.OBGYDC ---
Discharge Providers WEAVING MACHINE OPERATOR Date of Admission: 11/24/24 04:56 Date of Discharge: 11/25/24 Attending Provider at Admission: Michael Rutledge MD Attending Provider at Discharge: Michael Rutledge MD Primary Care Provider: Michael Rutledge MD Diagnoses at Discharge Discharge Diagnosis (1) 40 weeks gestation of : Status: Acute (2) Breech presentation, antepartum: Status: Acute Reason for Visit Reason for Visit: C Section Hospital Course Hospital Course The patient presented to the hospital for a scheduled section due to breech presentation. The was unremarkable. Her course was also unremarkable. She breast-fed well. Her pain was well-controlled. Her bleeding has been within normal limits. Information Peripartum Data: Delivery Method: Physical Exam Narrative: She is in no acute distress Lungs are clear auscultation bilaterally Her heart has a regular rate and rhythm Her fundus is below the umbilicus and firm Her dressing is clean, dry and intact Her extremities have trace edema Urinary Catheter Management: Deras: Cath Placed During This Visit: yes, but has since been removed by the nurse Reason for Continuing Indwelling Catheter: Decision to DC Catheter Urinary Catheter Date of Insertion: 11/24/24 Urinary Catheter Time of Insertion: 07:08 Date Urinary Catheter Removed: 11/25/24 Time Urinary Catheter Discontinued: 06:36 Discharge Data Studies Completed and Pending Laboratory Results WBC 7.85 10^3/uL (3.29-11.43) 11/25/24 04:52 RBC 3.13 10^6/uL (3.85-5.65) L 11/25/24 04:52 Hgb 7.70 g/dL (11.27-16.99) L 11/25/24 04:52 Hct 25.4 % (36-47) L 11/25/24 04:52 MCV 81.2 fl (85-98) L D 11/25/24 04:52 MCH 24.6 pg (27-33) L 11/25/24 04:52 MCHC 30.3 g/dL (30-55) D 11/25/24 04:52 RDW 15.9 % (12.1-15.1) H 11/25/24 04:52 Plt Count 261 10^3/cmm (157-399) 11/25/24 04:52 MPV 10.0 fL (7.4-10.4) 11/25/24 04:52 Neut % (Auto) 67.6 % 11/24/24 05:20 Lymph % (Auto) 25.9 % 11/24/24 05:20 [place] % (Auto) 5.0 % 11/24/24 05:20 Eos % (Auto) 0.9 % 11/24/24 05:20 Baso % (Auto) 0.2 % 11/24/24 05:20 Neut # (Auto) 6.52 10^3/uL (1.8-7.7) 11/24/24 05:20 Lymph # (Auto) 2.5 10^3/uL (0.8-4.8) 11/24/24 05:20 [place] # (Auto) 0.5 10^3/uL (0.2-0.9) 11/24/24 05:20 Eos # (Auto) 0.1 10^3/uL (0.0-0.8) 11/24/24 05:20 Baso # (Auto) 0.0 10^3/uL (0.0-0.1) 11/24/24 05:20 Nucleated RBC % (auto) 0 % 11/24/24 05:20 Nucleated RBCs # 0.0 /100WBC 11/24/24 05:20 Blood Type AB Positive 11/24/24 05:20 Rho(D) Type Rh positive 11/24/24 05:20 Antibody Screen Negative 11/24/24 05:20 Vitals Last Vital Signs Temp 98.1 F 11/25/24 04:07 Pulse 82 11/25/24 04:03 Resp 16 11/25/24 04:07 BP 125/59 11/25/24 04:03 Pulse Ox 99 11/24/24 08:51 O2 Del Method Room Air 11/24/24 08:51 Results Labs OB ([facility]): Obstetrics US 07/03/24 Blood Type AB Positive 11/24/24 Antibody Screen Negative 11/24/24 Hct, (36-47) 25.4 % L Today Hgb, (11.27-16.99) 7.70 g/dL L Today Rho(D) Type Rh positive 11/24/24 Plt Count, (157-399) 261 10^3/cmm Today Ser , Semi-Qnt 46974.00 mIU/mL 07/03/24 HCG, Qual, (Negative) Positive H 07/03/24 Discharge Plan Discharge Patient Disposition: Home Condition: Stable Prescriptions: New ibuprofen 800 mg Tablet 800 mg PO TID Qty: 45 0RF hydrocodone-acetaminophen 5-325 mg Tablet 1 tab PO Q6H PRN (Reason: Moderate To Severe Pain) Qty: 28 0RF docusate sodium 100 mg Capsule 100 mg PO BID Qty: 14 0RF Continued zqoxvfxk-sjb-Ge-FA 1 mg Tablet 1 tab PO DAILY Discharge Orders: Discharge Order (Routine); Ordered 11/25/24 Ordered By: Michael Rutledge Referrals: Michael Rutledge MD [Primary Care Provider, [facility]] - 11/30/24 Referral Note: Please set up a 6-week appointment as well. 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
[2024-11-25] MEDS: HYDROcodone-acetaminophen 5-325 mg Tablet PO ×2 (07:51→14:20)
[2024-11-25] MEDS: ferrous sulfate EC 325 mg Tablet PO (07:52)
[2024-11-25] MEDS: PRENATAL VIT NO.130/IRON/FOLIC 1 EACH TABLET PO (08:51)
[2024-11-25] MEDS: docusate sodium 100 mg Capsule PO (08:51)
[2024-11-25 08:53] VITALS: BP 126/59; PULSE 93; TEMP 36.2
[2024-11-25 15:49] VITALS: BP 127/69; PULSE 93
[2024-11-25 16:25] VITALS: BP 127/69; PULSE 93; RESP 17; TEMP 36.4
== END 2024-11-25 16:25 | disposition home or self-care (01) | DRG 788 ==
PROVIDERS: Admitting Provider Family Medicine; PCP Family Medicine; Visit Provider Family Medicine
PROC: 10D00Z1 Extraction of Products of Conception, Low, Open Approach (ICD-10-PCS; CPT 59514; principal; 2024-11-24 07:00)
DX: O48.0 Post-term pregnancy (principal); Z3A.40 40 weeks gestation of pregnancy; O32.1XX0 Maternal care for breech presentation, not applicable or unspecified; Z37.0 Single live birth
CPT/HCPCS: 36415; 51702; 59025; 59409; 85025; 85027; 86850; 86900; 99211; J0690; J1885; J2274; J2371; J2405; J2765; J3010; J3490; J7120; J7121; J9999